=== PATIENT | female | born 1990 | race Caucasian/White ===

== ENCOUNTER 2017-05-20 20:11 | Inpatient (IN) | payer OTHER, BC ==
[~2017-05-20] VITALS: Ht 162.6 cm; Wt 92.0 kg
[~2017-05-20 20:11] MED LIST: PRENATAL VITAM1 EAC4 PO
[2017-05-20] MEDS ORDERED: ARMOUR THYROID90 MG PO (20:54)
[2017-05-20] MEDS ORDERED: IRON160 MG PO (20:55)
--- NOTE | 2017-05-22 13:30 | NUR ---
05/22/17 1330 Hodan Marino PATIENT ARRIVES TO PACU W/ORAL AIRWAY IN PLACE W/COPIOUS AMOUNTS OF SALIVA. PATIENT IS CONTINUOUSLY SUCTIONED. DIRECTOR CLIENT SERVICES @ [employer] GLYCOPYROLATE IS ADMINISTERED TO DRY SECRETIONS W/EXPECTED RESULTANT TACHYCARDIA AFTER ADMINISTRATION. PATIENT WILL OPEN EYES, BUT IS UNABLE TO RESPOND MEANINGFULLY TO ANY COMMANDS.
--- NOTE | 2017-05-23 07:25 | NUR ---
DR COBIAN NOTIFIED OF HEMAGLOBIN OF 6.8
--- NOTE | 2017-06-08 08:32 | OR ---
[facility] [address], [place] [address] Signed DATE OF OPERATION: 05/22/2017 SURGEON: Katie Okeefe MD STRAIGHT CUTTER: Prakash Crawford MD PREOPERATIVE DIAGNOSIS: hemorrhage. POSTOPERATIVE DIAGNOSIS: hemorrhage. PROCEDURE: D and C, Bakri placement attempted. ANESTHESIA: General ET. ESTIMATED BLOOD LOSS: 200 mL. DRAINS: Chávez catheter. FLUIDS: 3500 mL of crystalloid. INDICATIONS AND FINDINGS: The patient is a 26-year-old female, 2, para 2, who delivered at approximately 2:00 a.m. this morning, who had been doing well and had minimal blood loss at delivery, who began having increasing bleeding this morning at approximately 10:30 a.m. She passed a very large clot followed by some smaller clots and did not respond to IV Pitocin, IM Methergine, p.o. Cytotec, and IM Hemabate. It was estimated that her blood loss was approximately 1000 mL. She was not responding to medication and she was continuing to have ongoing bleeding, was felt that surgical evaluation was needed. She was taken to the operating room where a D and C was done and some tissue was found at the apex of the fundus of the uterus. A Bakri balloon was attempted, but this was unsuccessful. Electronically Signed By: KATIE OKEEFE MD 06/08/17 0832 PATIENT NAME: SHAMA CHAKRABORTY OPERATIVE REPORT DATE OF : [birth year] REPORT #: [id number] PHYSICIAN: KATIE OKEEFE MD PCP: KATIE OKEEFE MD REPORT IS CONFIDENTIAL AND NOT TO BE RELEASED WITHOUT AUTHORIZATION [facility] [address], [place] [address] Signed DESCRIPTION OF PROCEDURE: The patient was prepped and draped in the dorsal lithotomy position. An open-sided speculum was placed and the anterior lip of the cervix, visualized and grasped with a ring forceps. The banjo curette was then placed and sharp curettage was done with some apparent placental tissue found as well as some clots. Following this, she was still having some ongoing bleeding, and it was felt that Bakri was appropriate. The Bakri was introduced, but unfortunately as it reached the lower segment of the uterus, it inevitably turned back on itself and came back out of the uterus. The placement of the Bakri was done under ultrasound guidance and this was confirmed on multiple attempts. Following this, a metal catheter was placed inside the Bakri tubing to give it some stiffness to allow it to be placed, but this was able to be placed to a certain extent and then could not be pushed any further without extreme pressure, so that attempt was also would abandoned. Following this, the ultrasound was redone and there still appeared to be some tissue with the fundus of the uterus and the banjo curette was re-used and it was with some difficulty that the actual fundus was reached with removal of a small amount of tissue. Banjo curette was almost to the hub to reach this area, but this was done under ultrasound guidance as well. Following this, the speculum was removed and she was observed. There did not appear to be any ongoing bleeding. Her uterus was very firm and the procedure was terminated. The patient was taken to the recovery room in good condition. Katie Okeefe MD PJW/MODL /[id number] cc: Prakash Crafword MD Copies: PRAKASH CRAWFORD MD ~ Electronically Signed By: KATIE OKEEFE MD 06/08/17 0832 PATIENT NAME: SHAMA CHAKRABORTY OPERATIVE REPORT DATE OF : [birth year] REPORT #: [id number] PHYSICIAN: KATIE OKEEFE MD PCP: KATIE OKEEFE MD REPORT IS CONFIDENTIAL AND NOT TO BE RELEASED WITHOUT AUTHORIZATION
== END 2017-05-24 11:00 | disposition home or self-care (01) | DRG 767 ==
LOC: FBCO 20:11 → FBC 05-21 05:23 → FBCO 05-24 14:17
PROVIDERS: ADMIT Obstetrics & Gynecology
PROC: 10D17ZZ Extraction of Products of Conception, Retained, Via Natural or Artificial Opening (ICD-10-PCS; 2017-05-22)
PROC: 3E033VJ Introduction of Other Hormone into Peripheral Vein, Percutaneous Approach (ICD-10-PCS; principal; 2017-05-22 11:45)
PROC: 10E0XZZ Delivery of Products of Conception, External Approach (ICD-10-PCS; principal; 2017-05-22 11:45)
PROC: 0KQM0ZZ Repair Perineum Muscle, Open Approach (ICD-10-PCS; principal; 2017-05-22 11:45)
PROC: 10907ZC Drainage of Amniotic Fluid, Therapeutic from Products of Conception, Via Natural or Artificial Opening (ICD-10-PCS; principal; 2017-05-22 11:45)
DX: O70.1 Second degree perineal laceration during delivery (principal); Z37.0 Single live birth; O72.0 Third-stage hemorrhage; O72.2 Delayed and secondary postpartum hemorrhage; Z3A.39 39 weeks gestation of pregnancy; O99.284 Endocrine, nutritional and metabolic diseases complicating childbirth; E03.9 Hypothyroidism, unspecified; O72.3 Postpartum coagulation defects
CPT/HCPCS: 00952; 36415; 36430; 59025; 85025; 85027; 86850; 86900; 86901; 86920; 99213; J0330; J0690; J1100; J2210; J2250; J2405; J2550; J2590; J2704; J2765; J3010; J7120; P9016